=== PATIENT | male | born 1945 | race Caucasian/White ===

== ENCOUNTER 2017-01-10 05:58 | Inpatient (IN) | payer OTHER ==
[2017-01-10] VITALS (16 sets, daily range): BP systolic 88–152; BP diastolic 43–77
[~2017-01-10] VITALS: Ht 175.3 cm; Wt 69.9 kg
--- NOTE | 2017-01-10 07:41 | DIAGNOSTIC IMAGING REPORT ---
PROCEDURE: XR CHEST 1 VIEW INDICATION: FEVER TECHNIQUE: Single view chest. 06:17 hours COMPARISON: None. FINDINGS: The cardiomediastinal contour and central vasculature are normal. The lungs are clear without focal consolidation, pleural effusion or pneumothorax. The osseous structures are intact. Surgical clips at the base of the left neck. IMPRESSION: 1. No evidence of acute cardiopulmonary disease.
--- NOTE | 2017-01-10 08:38 | ED NURSING NOTES ---
Clinical Report - Nurses [facility] [address] [place] [address] 01/10/2017 6:00 Patient: CECE SNYDER TRIAGE Triage time 06:02. Acuity: LEVEL 3. Chief Complaint: ALTERED MENTAL STATUS. Alert. No acute distress. SEPSIS SCREEN: Sepsis Screen: temperature greater than 38.3 degrees C (101 degrees F) and heart rate greater than 90. LEONARD COMA SCORE: Kennedy Coma Scale: 15- eyes open spontaneously (4); best verbal response- oriented x 4 (5); best motor response- obeys commands (6). --06:07 Christiano Welch R.N. 06:01 01/10/17. BP: 148/66. HR: 109. RR: 23. O2 saturation: 96% on nasal cannula at 2 liters/minute. Temp: 101.6 F (oral). Pain level now: 0/10. --06:07 Christiano Welch R.N. Weight: 69.3 kg stated. Height/Length: 69 inches Per Patient. BMI: 22.6. --06:08 Christiano Welch R.N. Medications Unable to Obtain. --06:04 Christiano Welch R.N. Lisinopril Oral (Tablet 40 mg) 1 tablet, daily. --09:27 Flash Coon R.N. Simvastatin Oral 5 mg, daily. --09:27 Flash Coon R.N. Allergies Floroquinalone Antibiotics. --06:53 Christiano Welch R.N. The following entry was struck by Christiano Welch R.N., 06:52 (01/10/17) Reason - other. <<STRICKEN ENTRY-- No Known Drug Allergy. --06:04 Christiano Welch R.N. --END STRIKE>>. History Arrived by EMS, and unaccompanied. This started just prior to arrival. SOCIAL HX: Former smoker. No alcohol use or drug use. NUTRITIONAL RISK ASSESSMENT: The nutritional risk assessment revealed no deficiencies. LEARNING NEEDS ASSESSMENT: The learning needs assessment revealed no barriers. --06:07 Christiano Welch R.N. PROBLEMS: Throat Cancer. Hypertension. --06:06 Christiano Welch R.N. ADDITIONAL SURGERIES: "Intestinal surgery". --06:06 Christiano Welch R.N. Interventions ID band on patient. To treatment room. --06:07 Christiano Welch R.N. PHYSICAL ASSESSMENT To room via stretcher. GENERAL / NEURO / PSYCH: Alert. Oriented X 4. Appears in no acute distress. Speech within normal limits. Does not appear in pain or distress or anxious. RESPIRATORY: Respirations not labored. Cough (loose). CVS: Cardiac rhythm: supraventricular tachycardia. Capillary refill less than 2 seconds. GI / : Bowel sounds within normal limits. SKIN: Skin is warm and dry. --06:09 Christiano Welch R.N. NURSING PROGRESS NOTES Patient gowned. Reassurance given. Two patient identifiers checked. Call light placed in reach. Side rails up x 1. Bed placed in lowest position. Brakes of bed on. Patient ready for evaluation- chart flagged. ED physician notified. Patient waiting for evaluation and results. --06:09 Christiano Welch R.N. Head of bed elevated. --06:09 Christiano Welch R.N. monitoring and evaluation advisor, pulse oximeter and NIBP monitor placed on patient. --06:09 Christiano Welch R.N. 06:02 01/10/2017 Site #1 started via IV in the left wrist with an 18g angiocath, with aseptic technique and good blood return; one attempt. Blood drawn: rainbow set. Labeled in the presence of the patient and sent to the lab. Saline lock flushed with 10 mL saline (Started by LIDIA Renae, warehouse technician). --06:12 Christiano Welch R.N. 06:03 01/10/2017 Site #2 started prior to arrival by EMS via IV in the right antecubital space with an 20g angiocath. Saline lock flushed with 10 mL saline (in field start by EMS). --06:13 Christiano Welch R.N. 06:13 01/10/2017 Started bag #1 1000 mL IV Fluids IV NS (Saline); at 500 mL/hr over 2 hour(s) via site #1 via IV pump. Allergies verified and confirmed 5 rights. IV patency established. IV site checked: no pain, redness, or swelling. IV flushed thoroughly pre- and post-medication administration. --06:13 Christiano Welch R.N. ( xray present with patient, lab present drawing cultures). --06:14 Christiano Welch R.N. 06:24 01/10/2017 Started 2 gm of Rocephin (CefTRIAXone Sodium) IVPB in bag #1 50 mL; at 150 mL/hr over 20 minute(s) via site #1 via IV pump. Allergies verified and confirmed 5 rights. IV patency established. IV site checked: no pain, redness, or swelling. IV flushed thoroughly pre- and post-medication administration. --06:27 Christiano Welch R.N. ( urine sample requested from patient and urinal provided.). --06:31 Christiano Welch R.N. ( Tech janice performing EKG). --06:31 Christiano Weclh R.N. EKG time: (0634). EKG was ordered, performed by a tech and shown to the ED physician. --06:34 Jose Weir, ER Bobbin Presser 06:43 01/10/2017 Rocephin IVPB Discontinued: completed. Total amount infused: 50 mL. IV patency established. IV site checked: no pain, redness, or swelling. IV flushed thoroughly. --06:46 Christiano Welch R.N. 06:46 01/10/2017 Started 500 mg of Zithromax (Azithromycin) IVPB in bag #1 250 mL; at 250 mL/hr over 1 hour(s) via site #1 via IV pump. Allergies verified and confirmed 5 rights. IV patency established. IV site checked: no pain, redness, or swelling. IV flushed thoroughly pre- and post-medication administration. --06:46 Christiano Welch R.N. Critical value relayed to ED by lab 06:49. Critical value received by maria luisa MURILLO. Lactate level: 3.9. Critical value read back. Verified lab result. ED physician notifed of critical value (Chiki). Orders were not received. --07:00 Tana Griffith R.N. ( report given to Flash Mackay RN). --07:08 Christiano Welch R.N. ( H&P form given to patients who was at bedside to help fill out.). --08:34 Deanna Moreira 08:00 01/10/17. BP: 100/55. HR: 89. RR: 20. O2 saturation: 97% on nasal cannula at 2 liters/minute. --08:59 Flash Coon R.N. 08:15 01/10/17. BP: 88/51 (regular adult cuff) taken on the right arm, while lying. HR: 88. RR: 18. O2 saturation: 97% on nasal cannula at 2 liters/minute. --08:59 Flash Coon R.N. 08:30 01/10/17. BP: 85/49 (regular adult cuff) taken on the right arm, while lying. HR: 86. RR: 18. O2 saturation: 98%. --09:00 Flash oCon R.N. 09:00 01/10/17. BP: 100/60 (regular adult cuff) taken on the right arm, while lying. HR: 94. RR: 18. O2 saturation: 97% on nasal cannula at 2 liters/minute. Pain level now: 0/10. --09:09 Flash Coon R.N. 09:15 01/10/17. BP: 109/60. HR: 86. RR: 16. O2 saturation: 100% on nasal cannula at 2 liters/minute. Temp: 98.4 F (oral). Pain level now: 0/10. --09:25 Flash Coon R.N. 09:30 01/10/17. BP: 91/50. HR: 83. RR: 16. O2 saturation: 99% on nasal cannula at 2 liters/minute. Pain level now: 0/10. --09:51 Flash Coon R.N. 10:00 01/10/17. BP: 106/61 (regular adult cuff) taken on the right arm, while lying. HR: 84. RR: 16. O2 saturation: 99% on nasal cannula at 2 liters/minute. Pain level now: 0/10. --10:13 Flash Coon R.N. 07:50 01/10/2017 Zithromax IVPB Discontinued: bag #1 completed. Total amount infused: 250 mL. IV patency established. IV site checked: no pain, redness, or swelling. IV flushed thoroughly. --10:44 Flash Coon R.N. 08:25 01/10/2017 Started 1.73 gm of Vancomycin IVPB in bag #1 535 mL; at 267 mL/hr over 2 hour(s) via site #1 via IV pump. Allergies verified and confirmed 5 rights. IV patency established. IV site checked: no pain, redness, or swelling. IV flushed thoroughly pre- and post-medication administration. --08:32 Flash Coon R.N. 08:30 01/10/2017 IV Fluids IV NS Bag Change: bag #2 completed. Total amount infused: 2000. STARTED bag #3 (1000 mL) at 500 mL/hr via IV pump. Confirmed 5 rights. IV patency established. IV site checked: no pain, redness, or swelling. IV flushed thoroughly. --08:33 Flash Coon R.N. 10:30 01/10/2017 Vancomycin IVPB Discontinued: bag #1 completed. Total amount infused: 535 mL. IV patency established. IV site checked: no pain, redness, or swelling. IV flushed thoroughly. --10:43 Flash Coon R.N. 10:30 01/10/17. BP: 109/60. HR: 90. RR: 17. O2 saturation: 97% on nasal cannula at 2 liters/minute. Pain level now: 010. --10:52 Flash Coon R.N. 10:45 01/10/17. BP: 114/60. HR: 82. RR: 18. O2 saturation: 96% on nasal cannula at 2 liters/minute. Pain level now: 010. --10:53 Flash Coon R.N. 11:00 01/10/17. BP: 106/63 (regular adult cuff) taken on the right arm, while lying. HR: 84. RR: 17. O2 saturation: 98% on room air. Pain level now: 010. --11:13 Flash Coon R.N. Cardiac rhythm: normal sinus rhythm. monitoring and evaluation advisor, pulse oximeter and NIBP monitor placed on patient; monitoring and evaluation advisor- Lead II and V1; monitor alarms on. Call light placed in reach. Side rails up x 2. Bed placed in lowest position. Brakes of bed on. Patient waiting for admit bed. --11:13 Flash Coon R.N. 10:35 01/10/2017 IV Fluids IV NS Discontinued: bag #3 completed. Total amount infused: 1000 mL. IV patency established. IV site checked: no pain, redness, or swelling. IV flushed thoroughly. --12:04 Flash Coon R.N. DISPOSITION / DISCHARGE Report was given to a nurse via a phone call. Report included patient's care, treatment, medications, reviewed medication reconcilliation, and condition (including any recent changes or anticipated changes). All questions were answered. Report was acknowledged. --12:09 Flash Coon R.N. 12:15 01/10/2017 Site #[address] upon admission; patent, no pain and no signs of infection or infiltration. Good blood return present. Flushed with 10 mL saline; flushes easily. --12:46 Flash Coon R.N. 12:15 01/10/2017 Site #[address] upon admission; patent, no pain and no signs of infection or infiltration. Good blood return present. Flushed with 10 mL saline; flushes easily. --12:46 Flash Coon R.N. Cardiac rhythm: normal sinus rhythm. Departure time: 1215. Condition at departure: improved. Admitted to the Critical Care Unit (306). --12:46 Flash Coon R.N. 11:45 01/10/17. BP: 133/65. HR: 77. RR: 17. O2 saturation: 98% on room air. Temp: 98.4 F (oral). Pain level now: 0/10. --12:46 Flash Coon R.N. Locked/Released at 01/10/2017 12:47 by Flash Coon R.N.
--- NOTE | 2017-01-10 08:38 | ED ORDER SUMMARY ---
..... Patient: CECE SNYDER OrderSheet [facility] VisitID: [id number] [address] [place] [address] 71y, M Registration Date/Time: 01/10/2017 ORDER SHEET Weight: 69.3 kg (stated) Allergies: Floroquinalone Antibiotics GENERAL ORDERS: Chest 1V Urgent (06:01/10/2017 Veronica HIGGINBOTHAM) (6:15 iCetana ER Technical Trainer) Blood Culture (No) (N/A) Urgent (06:01/10/2017 Veronica HIGGINBOTHAM) (6:10 DDavis R.N.) Dictaphone Typist (Continuous) (06:01/10/2017 Veronica HIGGINBOTHAM) (6:10 DDavis R.N.) Cardiac Panel Stat (06:01/10/2017 Veronica HIGGINBOTHAM) (6:10 DDavis R.N.) UA-Culture if indicated Urgent (06:01/10/2017 Veronica HIGGINBOTHAM) (Ack 6:24 iCetana ER Technical Trainer) (8:30 JSimbeck R.N.) Oxygen (2 L/min) (NC) (06:07 01/10/2017 Veronica HIGGINBOTHAM) (6:10 DDavis R.N.) Pulse oximeter (06:01/10/2017 Veronica HIGGINBOTHAM) (6:10 DDavis R.N.) EKG - ER Stat (06:01/10/2017 Veronica HIGGINBOTHAM) (Ack 6:24 ugichemmike ER Technical Trainer) (6:31 DDavis R.N.) PCT (Procalcitonin) Urgent (06:01/10/2017 Veronica HIGGINBOTHAM) (6:10 DDavis R.N.) Lactate, Serum Urgent (06:01/10/2017 Veronica HIGGINBOTHAM) (6:10 DDavis R.N.) CRP Urgent (06:01/10/2017 Veronica HIGGINBOTHAM) (6:10 DDavis R.N.) MEDICATION ORDERS: IV FLUIDS: IV NS : initial bolus none -, then 500 mL/hr for 4h (NOW); Routine (06:01/10/2017 Veronica HIGGINBOTHAM) (6:13 Leatha R.N.) Rocephin IV 2 gm/50mL (NOW) (06:10 01/10/2017 Veronica HIGGINBOTHAM) (6:27 DDgaviota R.N.) Zithromax IV 500 mg/250 mL (NOW) (06:10 01/10/2017 Veronica HIGGINBOTHAM) (Ack 6:27 DDavis R.N.) (6:46 DDavis R.N.) Vancomycin IV 25 mg/kg (NOW) (06:52 01/10/2017 Veronica HIGGINBOTHAM) (8:32 Shanel R.N.) ORDER SHEET NOTES: [Electronically signed by Flash Coon R.N. (12:47 01/10/2017)] [Electronically signed by James Monet MD (22:06 01/11/2017)] [Electronically locked/signed by Flash Coon R.N. (12:47 01/10/2017)]
--- NOTE | 2017-01-10 08:38 | ED CLINICAL REPORT ---
Clinical Report - Physicians/Mid Levels [facility] [address] [place] [address] 01/10/2017 6:00 Patient: CECE SNYDER Time Seen: 06:02 Jan 10 2017. Arrived- By ambulance. Historian- patient and EMS personnel. CPT: Critical care 30-74 min plus (#[id number]). EKG interpretation (#[id number]). HISTORY OF PRESENT ILLNESS Chief Complaint: Code Sepsis. ( fever and confusion tonight. No pain, cough, dysuria , vomiting, diarrhea.). This started today and is still present. At its maximum, severity described as moderate. When seen in the E.D., severity described as moderate. The patient has had fatigue and weakness. Similar symptoms previously: None. Recent medical care: Not recently seen/assessed. REVIEW OF SYSTEMS The patient has had fever and chills. No sore throat or throat, sinus drainage, cough or difficulty breathing. No chest pain, abdominal pain, nausea, vomiting or diarrhea. No black stools, bloody stools, difficulty with urination, skin rash or headache. No blackouts, diabetic symptoms or easy bruising. The patient has had difficulty with ambulation. took MOM last night. All systems otherwise negative, except as recorded above. PAST HISTORY Constipation Bowel surgery. Throat Cancer. Hypertension. - ADDITIONAL SURGERIES: "Intestinal surgery". Medications: Simvastatin Oral 5 mg, daily. Lisinopril Oral (Tablet 40 mg) 1 tablet, daily. Unable to Obtain. Allergies: Floroquinalone Antibiotics. SOCIAL HISTORY Former smoker. No alcohol use or drug use. ADDITIONAL NOTES The nursing notes have been reviewed. PHYSICAL EXAM Vital Signs: 01/10/2017 06:02 BP: 148/66. HR: 109. RR: 23. O2 saturation: 96%. Temp: 101.6 F. Pain level now: 0/10. Appearance: Alert. Patient in mild distress. Eyes: Eyes normal inspection. ENT: Dry mucous membranes present. Pharynx normal. Neck: Normal inspection. CVS: Tachycardia. Heart sounds normal. Pulses normal. Respiratory: No respiratory distress. Breath sounds normal. Chest nontender. Abdomen: Soft and nontender. Bowel sounds normal. Back: Normal inspection. Skin: Skin warm. Normal skin color. No rash. Extremities: Extremities exhibit normal ROM. No lower extremity edema. Neuro: Oriented X 3. No motor deficit. No sensory deficit. Reflexes normal. LABS, X-RAYS, AND EKG EKG: Normal EKG. Chest X-ray: (Patchy infiltrates.). Views: AP (portable). Technique: good. The X-rays were independently viewed by me and interpreted contemporaneously by me. Laboratory Tests: CBC w Diff: (TRACY: 01/11/2017 05:35) ( MsgRcvd 01/11/2017 05:43) Final results Test Result Flag Units (Reference) WHITE BLOOD COUNT 14.3 H K/uL (4.5-11.5) RED BLOOD COUNT 4.11 L M/uL (4.50-5.90) HEMOGLOBIN 13.0 L gm/dL (13.5-17.5) HEMATOCRIT 38.1 L % (41.0-53.0) MEAN CELL VOLUME 93 fL (80-100) MEAN CORPUSCULAR HGB 32 pg (26-34) MEAN CORPUSCULAR HGB CONC 34 g/dL (31-37) RED CELL DISTRIBUTION WIDTH 13.0 % (11.6-14.8) PLATELET COUNT 168 K/uL (150-400) NEUTROPHIL % 85.7 H % (50-75) LYMPH % 7.2 L % (25-40) MONO % 6.6 % (3-14) EOSINOPHIL % 0.4 % (0-4) BASOPHIL % 0.1 % (0-2) BMP: (TRACY: 01/11/2017 04:00) ( MsgRcvd 01/11/2017 04:35) Final results Test Result Flag Units (Reference) GLUCOSE 123 H mg/dL (70-110) BUN 8 mg/dL (7-18) CREATININE 0.7 mg/dL (0.6-1.3) Estimated GFR >60 mL/min Estimated GFR- >60 mL/min Note: Persistent reduction over 3 months in eGFR<60 mL/min/1.73 m2 defines CKD. Patients with eGFR values>=60 mL/min/1.73 m2 may also have CKD if evidence ofpersistent proteinuria. Additional information may be foundat www.kidney.org. SODIUM 137 mmol/L (136-145) POTASSIUM 3.7 mmol/L (3.5-5.1) CHLORIDE 106 mmol/L (98-107) CARBON DIOXIDE 23 mmol/L (21-32) CALCIUM 7.8 L mg/dL (8.5-10.1) UA-Culture if indicated: (TRACY: 01/10/2017 08:20) ( [facility] 01/10/2017 09:31) Final results Test Result Flag Units (Reference) URINE COLOR YELLOW URINE APPEARANCE CLEAR URINE GLUCOSE NEGATIVE (NEGATIVE) URINE BILIRUBIN NEGATIVE (NEGATIVE) URINE KETONE NEGATIVE (NEGATIVE) URINE SPECIFIC GRAVITY <= 1.005 L (1.010-1.030) URINE PH 6.5 (5.0-8.0) URINE PROTEIN NEGATIVE (NEGATIVE) URINE UROBILINOGEN 0.2 EU/dL (0.2-1.0) URINE NITRITE NEGATIVE (NEGATIVE) URINE BLOOD NEGATIVE (NEGATIVE) URINE LEUK ESTERASE NEGATIVE (NEGATIVE) URINE RBC NONE SEEN rbc/hpf (0-1) URINE WBC NONE SEEN wbc/hpf (0-1) URINE EPITHELIAL CELLS RARE EPI/hpf (0-5) URINE BACTERIA NONE SEEN (NONE SEEN) URINE COMMENT CULT NOT INDICATED URINE CULTURES ARE SET-UP BASED ON THE FOLLOWING CRITERIA:POSITIVE NITRITEPOSITIVE LEUKOCYTE ESTERASEGREATER THAN 10 WHITE BLOOD CELLSMODERATE (2+) OR GREATER BACTERIA CBC w Diff: (TRACY: 01/10/2017 06:00) ( [facility] 01/10/2017 06:27) Final results Test Result Flag Units (Reference) WHITE BLOOD COUNT 12.3 H K/uL (4.5-11.5) RED BLOOD COUNT 4.62 M/uL (4.50-5.90) HEMOGLOBIN 14.3 gm/dL (13.5-17.5) HEMATOCRIT 42.7 % (41.0-53.0) MEAN CELL VOLUME 92 fL (80-100) MEAN CORPUSCULAR HGB 31 pg (26-34) MEAN CORPUSCULAR HGB CONC 34 g/dL (31-37) RED CELL DISTRIBUTION WIDTH 12.6 % (11.6-14.8) PLATELET COUNT 209 K/uL (150-400) NEUTROPHIL % 92.9 H % (50-75) LYMPH % 2.7 L % (25-40) MONO % 4.4 % (3-14) EOSINOPHIL % 0 % (0-4) BASOPHIL % 0 % (0-2) [id number]: (TRACY: 01/10/2017 11:25) ( [facility] 01/11/2017 00:18) Final results Test Result Flag Units (Reference) LACTIC ACID (SEPSIS) FOLLOWUP 0.9 mmol/L (0.4-2.0) [id number]: (TRACY: 01/10/2017 06:00) ( [facility] 01/10/2017 06:44) Final results Test Result Flag Units (Reference) C-REACTIVE PROTEIN < 0.2 mg/dL (0.0-0.9) Lactate, Serum: (TRACY: 01/10/2017 06:00) ( [facility] 01/10/2017 06:52) Final results Test Result Flag Units (Reference) LACTIC ACID 3.9 H mmol/L (0.4-2.0) CRITICAL RESULTS CALLEDCalled to EDDIE ANTON RN 01/10/17 0651Were 2 patient identifiers used? YWas the result read back? Y [id number]: (TRACY: 01/10/2017 06:00) ( [facility] 01/10/2017 07:54) Final results Test Result Flag Units (Reference) PROCALCITONIN <0.5 ng/mL (0-0.5) PCT Concentration: Interpretation : Risk/option for action PCT <=0.5 ng/mL : Systemic : Low risk forinfection(sepsis): progression to severeis not likely. : systemic infection.Local bacterial : CAUTION-PCT levelsinfection is : below 0.5 ng/mL do notpossible. : exclude an infection,because localizedinfections (withoutsystemic signs) may beassociated with suchlow levels. If PCT ismeasured very earlyafter a bacterialchallenge (usually <6hours), these valuesmay still be low. Inthis case PCT shouldbe re-assessed 6-24hours later. PCT >0.5 and : Systemic infection: Moderate risk for<= 2 ng/mL : (sepsis) is : progression to severepossible, but : systemic infection.other conditions : The patient should beare known to : closely monitoredelevate PCT. : both clinically andby re-assessing PCTwithin 6-24 hours. PCT > 2 ng/mL : Systemic infection: High risk for(sepsis) is likely: progression to severeunless other : systemic infection.causes are known. : PCT >= 10 ng/mL : Important systemic: High likelihood ofinflammatory : severe sepsis orresponse, almost : septic shock.exclusively due to:severe bacterial :sepsis or septic :shock. : CHEM 13 PANEL: (TRACY: 01/10/2017 06:00) ( MsgRcvd 01/10/2017 07:10) Final results Test Result Flag Units (Reference) GLUCOSE 183 H mg/dL (70-110) BUN 15 mg/dL (7-18) CREATININE 1.2 mg/dL (0.6-1.3) Estimated GFR >60 mL/min Estimated GFR- >60 mL/min Note: Persistent reduction over 3 months in eGFR<60 mL/min/1.73 m2 defines CKD. Patients with eGFR values>=60 mL/min/1.73 m2 may also have CKD if evidence ofpersistent proteinuria. Additional information may be foundat www.kidney.org. SODIUM 135 L mmol/L (136-145) POTASSIUM 3.5 mmol/L (3.5-5.1) CHLORIDE 96 L mmol/L (98-107) CARBON DIOXIDE 24 mmol/L (21-32) CALCIUM 8.8 mg/dL (8.5-10.1) TOTAL PROTEIN 6.9 g/dL (6.4-8.2) ALBUMIN 3.6 g/dL (3.3-5.0) BILIRUBIN, TOTAL 1.0 mg/dL (0.0-1.0) ALKALINE PHOSPHATASE 61 U/L (46-116) AST (SGOT) 25 U/L (15-37) ALT (SGPT) 26 U/L (12-78) CPK 37 U/L (24-260) TROPONIN I <0.05 ng/mL (0.00-1.5) TROPONIN REFERENCE RANGE:<0.1 NEGATIVE0.1-1.5 INDETERMINANT>1.5 POSITIVE MAGNESIUM 1.7 L mg/dL (1.8-2.4) Blood Culture: (TRACY: 01/10/2017 06:15) ( [facility] 01/11/2017 06:21) IP Is patient on antibiotics? N If so, list antibiotic: N/A Test Result Flag Units (Reference) CULTURE, BLOOD NO GROWTH AFTER 24 HOURS Blood Culture: (TRACY: 01/10/2017 06:10) ( [facility] 01/11/2017 06:21) IP Is patient on antibiotics? N If so, list antibiotic: N/A Test Result Flag Units (Reference) CULTURE, BLOOD NO GROWTH AFTER 24 HOURS . PROGRESS AND PROCEDURES Course of Care: IV NS BC times 2 Vancomycin 25mg/kg Rocephin 2g IV Zithromax 500 mg IV Pt had a drop in blood pressure in marta 80's. Was bolused with more fluids and recovered to [address] Potter here to assume care. Critical care performed (105 minutes). Time is exclusive of separately billable procedures. Time includes: direct patient care, patient reassessment, coordination of patient care, interpretation of data (laboratory data, pulse oximetry and chest xrays), review of patient's medical records, medical consultation and documentation of patient care- see progress notes. Procedures included in critical care time: phlebotomy. Procedures excluded from critical care time: electrocardiography. Discussed case with on-call health care provider, (Abbey). Reviewed test results. Agreed upon treatment plan and decision to admit. Health care provider will see patient in ED. Patient/family counseled. Old medical records ordered. Disposition orders written. Disposition: Admitted to the Critical Care Unit. CLINICAL IMPRESSION Sepsis Fever Pneumonia. (Electronically signed by James Monet MD 01/11/2017 22:06)
--- NOTE | 2017-01-10 08:38 | ED NURSING NOTES ---
Clinical Report - Nurses [facility] [address] [place] [address] 01/10/2017 6:00 Patient: CECE SNYDER TRIAGE Triage time 06:02. Acuity: LEVEL 3. Chief Complaint: ALTERED MENTAL STATUS. Alert. No acute distress. SEPSIS SCREEN: Sepsis Screen: temperature greater than 38.3 degrees C (101 degrees F) and heart rate greater than 90. LEONARD COMA SCORE: [place] Coma Scale: 15- eyes open spontaneously (4); best verbal response- oriented x 4 (5); best motor response- obeys commands (6). --06:07 Christiano Welch R.N. 06:01 01/10/17. BP: 148/66. HR: 109. RR: 23. O2 saturation: 96% on nasal cannula at 2 liters/minute. Temp: 101.6 F (oral). Pain level now: 0/10. --06:07 Christiano Welch R.N. Weight: 69.3 kg stated. Height/Length: 69 inches Per Patient. BMI: 22.6. --06:08 Christiano Welch R.N. Medications Unable to Obtain. --06:04 Christiano Welch R.N. Lisinopril Oral (Tablet 40 mg) 1 tablet, daily. --09:27 Flash Coon R.N. Simvastatin Oral 5 mg, daily. --09:27 Flash Coon R.N. Allergies Floroquinalone Antibiotics. --06:53 Christiano Welch R.N. The following entry was struck by Christiano Welch R.N., 06:52 (01/10/17) Reason - other. <<STRICKEN ENTRY-- No Known Drug Allergy. --06:04 Christiano Welch R.N. --END STRIKE>>. History Arrived by EMS, and unaccompanied. This started just prior to arrival. SOCIAL HX: Former smoker. No alcohol use or drug use. NUTRITIONAL RISK ASSESSMENT: The nutritional risk assessment revealed no deficiencies. LEARNING NEEDS ASSESSMENT: The learning needs assessment revealed no barriers. --06:07 Christiano Welch R.N. PROBLEMS: Throat Cancer. Hypertension. --06:06 Christiano Welch R.N. ADDITIONAL SURGERIES: "Intestinal surgery". --06:06 Christiano Welch R.N. Interventions ID band on patient. To treatment room. --06:07 Christiano Welch R.N. PHYSICAL ASSESSMENT To room via stretcher. GENERAL / NEURO / PSYCH: Alert. Oriented X 4. Appears in no acute distress. Speech within normal limits. Does not appear in pain or distress or anxious. RESPIRATORY: Respirations not labored. Cough (loose). CVS: Cardiac rhythm: supraventricular tachycardia. Capillary refill less than 2 seconds. GI / : Bowel sounds within normal limits. SKIN: Skin is warm and dry. --06:09 Christiano Welch R.N. NURSING PROGRESS NOTES Patient gowned. Reassurance given. Two patient identifiers checked. Call light placed in reach. Side rails up x 1. Bed placed in lowest position. Brakes of bed on. Patient ready for evaluation- chart flagged. ED physician notified. Patient waiting for evaluation and results. --06:09 Christiano Welch R.N. Head of bed elevated. --06:09 Christiano Welch R.N. monitor and storage bin tender, pulse oximeter and NIBP monitor placed on patient. --06:09 Christiano Welch R.N. 06:02 01/10/2017 Site #1 started via IV in the left wrist with an 18g angiocath, with aseptic technique and good blood return; one attempt. Blood drawn: rainbow set. Labeled in the presence of the patient and sent to the lab. Saline lock flushed with 10 mL saline (Started by LIDIA Renae, manager of housekeeping). --06:12 Christiano Welch R.N. 06:03 01/10/2017 Site #2 started prior to arrival by EMS via IV in the right antecubital space with an 20g angiocath. Saline lock flushed with 10 mL saline (in field start by EMS). --06:13 Christiano Welch R.N. 06:13 01/10/2017 Started bag #1 1000 mL IV Fluids IV NS (Saline); at 500 mL/hr over 2 hour(s) via site #1 via IV pump. Allergies verified and confirmed 5 rights. IV patency established. IV site checked: no pain, redness, or swelling. IV flushed thoroughly pre- and post-medication administration. --06:13 Christiano Welch R.N. ( xray present with patient, lab present drawing cultures). --06:14 Christiano Welch R.N. 06:24 01/10/2017 Started 2 gm of Rocephin (CefTRIAXone Sodium) IVPB in bag #1 50 mL; at 150 mL/hr over 20 minute(s) via site #1 via IV pump. Allergies verified and confirmed 5 rights. IV patency established. IV site checked: no pain, redness, or swelling. IV flushed thoroughly pre- and post-medication administration. --06:27 Christiano Welch R.N. ( urine sample requested from patient and urinal provided.). --06:31 Christiano Welch R.N. ( Tech janice performing EKG). --06:31 Christiano Welch R.N. EKG time: (0634). EKG was ordered, performed by a tech and shown to the ED physician. --06:34 Jose Weir, ER Manager Disaster Recovery 06:43 01/10/2017 Rocephin IVPB Discontinued: completed. Total amount infused: 50 mL. IV patency established. IV site checked: no pain, redness, or swelling. IV flushed thoroughly. --06:46 Christiano Welch R.N. 06:46 01/10/2017 Started 500 mg of Zithromax (Azithromycin) IVPB in bag #1 250 mL; at 250 mL/hr over 1 hour(s) via site #1 via IV pump. Allergies verified and confirmed 5 rights. IV patency established. IV site checked: no pain, redness, or swelling. IV flushed thoroughly pre- and post-medication administration. --06:46 Christiano Welch R.N. Critical value relayed to ED by lab 06:49. Critical value received by maria luisa MURILLO. Lactate level: 3.9. Critical value read back. Verified lab result. ED physician notifed of critical value (Chiki). Orders were not received. --07:00 Tana Griffith R.N. ( report given to Flash Mackay RN). --07:08 Christiano Welch R.N. ( H&P form given to patients who was at bedside to help fill out.). --08:34 Deanna Moreira 08:00 01/10/17. BP: 100/55. HR: 89. RR: 20. O2 saturation: 97% on nasal cannula at 2 liters/minute. --08:59 Flash Coon R.N. 08:15 01/10/17. BP: 88/51 (regular adult cuff) taken on the right arm, while lying. HR: 88. RR: 18. O2 saturation: 97% on nasal cannula at 2 liters/minute. --08:59 Flash Coon R.N. 08:30 01/10/17. BP: 85/49 (regular adult cuff) taken on the right arm, while lying. HR: 86. RR: 18. O2 saturation: 98%. --09:00 Flash Coon R.N. 09:00 01/10/17. BP: 100/60 (regular adult cuff) taken on the right arm, while lying. HR: 94. RR: 18. O2 saturation: 97% on nasal cannula at 2 liters/minute. Pain level now: 0/10. --09:09 Flash Coon R.N. 09:15 01/10/17. BP: 109/60. HR: 86. RR: 16. O2 saturation: 100% on nasal cannula at 2 liters/minute. Temp: 98.4 F (oral). Pain level now: 0/10. --09:25 Flash Coon R.N. 09:30 01/10/17. BP: 91/50. HR: 83. RR: 16. O2 saturation: 99% on nasal cannula at 2 liters/minute. Pain level now: 0/10. --09:51 Flash Cono R.N. 10:00 01/10/17. BP: 106/61 (regular adult cuff) taken on the right arm, while lying. HR: 84. RR: 16. O2 saturation: 99% on nasal cannula at 2 liters/minute. Pain level now: 0/10. --10:13 Flash Coon R.N. 07:50 01/10/2017 Zithromax IVPB Discontinued: bag #1 completed. Total amount infused: 250 mL. IV patency established. IV site checked: no pain, redness, or swelling. IV flushed thoroughly. --10:44 Flash Coon R.N. 08:25 01/10/2017 Started 1.73 gm of Vancomycin IVPB in bag #1 535 mL; at 267 mL/hr over 2 hour(s) via site #1 via IV pump. Allergies verified and confirmed 5 rights. IV patency established. IV site checked: no pain, redness, or swelling. IV flushed thoroughly pre- and post-medication administration. --08:32 Flash Coon R.N. 08:30 01/10/2017 IV Fluids IV NS Bag Change: bag #2 completed. Total amount infused: 2000. STARTED bag #3 (1000 mL) at 500 mL/hr via IV pump. Confirmed 5 rights. IV patency established. IV site checked: no pain, redness, or swelling. IV flushed thoroughly. --08:33 Flash Coon R.N. 10:30 01/10/2017 Vancomycin IVPB Discontinued: bag #1 completed. Total amount infused: 535 mL. IV patency established. IV site checked: no pain, redness, or swelling. IV flushed thoroughly. --10:43 Flash Coon R.N. 10:30 01/10/17. BP: 109/60. HR: 90. RR: 17. O2 saturation: 97% on nasal cannula at 2 liters/minute. Pain level now: 010. --10:52 Flash Coon R.N. 10:45 01/10/17. BP: 114/60. HR: 82. RR: 18. O2 saturation: 96% on nasal cannula at 2 liters/minute. Pain level now: 010. --10:53 Flash Coon R.N. 11:00 01/10/17. BP: 106/63 (regular adult cuff) taken on the right arm, while lying. HR: 84. RR: 17. O2 saturation: 98% on room air. Pain level now: 010. --11:13 Flash Coon R.N. Cardiac rhythm: normal sinus rhythm. monitor and storage bin tender, pulse oximeter and NIBP monitor placed on patient; monitor and storage bin tender- Lead II and V1; monitor alarms on. Call light placed in reach. Side rails up x 2. Bed placed in lowest position. Brakes of bed on. Patient waiting for admit bed. --11:13 Flash Coon R.N. 10:35 01/10/2017 IV Fluids IV NS Discontinued: bag #3 completed. Total amount infused: 1000 mL. IV patency established. IV site checked: no pain, redness, or swelling. IV flushed thoroughly. --12:04 Flash Coon R.N. DISPOSITION / DISCHARGE Report was given to a nurse via a phone call. Report included patient's care, treatment, medications, reviewed medication reconcilliation, and condition (including any recent changes or anticipated changes). All questions were answered. Report was acknowledged. --12:09 Flash Coon R.N. 12:15 01/10/2017 Site #[address] upon admission; patent, no pain and no signs of infection or infiltration. Good blood return present. Flushed with 10 mL saline; flushes easily. --12:46 Flash Coon R.N. 12:15 01/10/2017 Site #[address] upon admission; patent, no pain and no signs of infection or infiltration. Good blood return present. Flushed with 10 mL saline; flushes easily. --12:46 Flash Coon R.N. Cardiac rhythm: normal sinus rhythm. Departure time: 1215. Condition at departure: improved. Admitted to the Critical Care Unit (306). --12:46 Flash Coon R.N. 11:45 01/10/17. BP: 133/65. HR: 77. RR: 17. O2 saturation: 98% on room air. Temp: 98.4 F (oral). Pain level now: 0/10. --12:46 Flash Coon R.N. Locked/Released at 01/10/2017 12:47 by Flash Coon R.N.
--- NOTE | 2017-01-10 08:38 | ED CLINICAL REPORT ---
Clinical Report - Physicians/Mid Levels [facility] [address] [place] [address] 01/10/2017 6:00 Patient: CECE SNYDER Time Seen: 06:02 Jan 10 2017. Arrived- By ambulance. Historian- patient and EMS personnel. CPT: Critical care 30-74 min plus (#[id number]). EKG interpretation (#[id number]). HISTORY OF PRESENT ILLNESS Chief Complaint: Code Sepsis. ( fever and confusion tonight. No pain, cough, dysuria , vomiting, diarrhea.). This started today and is still present. At its maximum, severity described as moderate. When seen in the E.D., severity described as moderate. The patient has had fatigue and weakness. Similar symptoms previously: None. Recent medical care: Not recently seen/assessed. REVIEW OF SYSTEMS The patient has had fever and chills. No sore throat or throat, sinus drainage, cough or difficulty breathing. No chest pain, abdominal pain, nausea, vomiting or diarrhea. No black stools, bloody stools, difficulty with urination, skin rash or headache. No blackouts, diabetic symptoms or easy bruising. The patient has had difficulty with ambulation. took MOM last night. All systems otherwise negative, except as recorded above. PAST HISTORY Constipation Bowel surgery. Throat Cancer. Hypertension. - ADDITIONAL SURGERIES: "Intestinal surgery". Medications: Simvastatin Oral 5 mg, daily. Lisinopril Oral (Tablet 40 mg) 1 tablet, daily. Unable to Obtain. Allergies: Floroquinalone Antibiotics. SOCIAL HISTORY Former smoker. No alcohol use or drug use. ADDITIONAL NOTES The nursing notes have been reviewed. PHYSICAL EXAM Vital Signs: 01/10/2017 06:02 BP: 148/66. HR: 109. RR: 23. O2 saturation: 96%. Temp: 101.6 F. Pain level now: 0/10. Appearance: Alert. Patient in mild distress. Eyes: Eyes normal inspection. ENT: Dry mucous membranes present. Pharynx normal. Neck: Normal inspection. CVS: Tachycardia. Heart sounds normal. Pulses normal. Respiratory: No respiratory distress. Breath sounds normal. Chest nontender. Abdomen: Soft and nontender. Bowel sounds normal. Back: Normal inspection. Skin: Skin warm. Normal skin color. No rash. Extremities: Extremities exhibit normal ROM. No lower extremity edema. Neuro: Oriented X 3. No motor deficit. No sensory deficit. Reflexes normal. LABS, X-RAYS, AND EKG EKG: Normal EKG. Chest X-ray: (Patchy infiltrates.). Views: AP (portable). Technique: good. The X-rays were independently viewed by me and interpreted contemporaneously by me. Laboratory Tests: CBC w Diff: (TRACY: 01/11/2017 05:35) ( MsgRcvd 01/11/2017 05:43) Final results Test Result Flag Units (Reference) WHITE BLOOD COUNT 14.3 H K/uL (4.5-11.5) RED BLOOD COUNT 4.11 L M/uL (4.50-5.90) HEMOGLOBIN 13.0 L gm/dL (13.5-17.5) HEMATOCRIT 38.1 L % (41.0-53.0) MEAN CELL VOLUME 93 fL (80-100) MEAN CORPUSCULAR HGB 32 pg (26-34) MEAN CORPUSCULAR HGB CONC 34 g/dL (31-37) RED CELL DISTRIBUTION WIDTH 13.0 % (11.6-14.8) PLATELET COUNT 168 K/uL (150-400) NEUTROPHIL % 85.7 H % (50-75) LYMPH % 7.2 L % (25-40) MONO % 6.6 % (3-14) EOSINOPHIL % 0.4 % (0-4) BASOPHIL % 0.1 % (0-2) BMP: (TRACY: 01/11/2017 04:00) ( MsgRcvd 01/11/2017 04:35) Final results Test Result Flag Units (Reference) GLUCOSE 123 H mg/dL (70-110) BUN 8 mg/dL (7-18) CREATININE 0.7 mg/dL (0.6-1.3) Estimated GFR >60 mL/min Estimated GFR- >60 mL/min Note: Persistent reduction over 3 months in eGFR<60 mL/min/1.73 m2 defines CKD. Patients with eGFR values>=60 mL/min/1.73 m2 may also have CKD if evidence ofpersistent proteinuria. Additional information may be foundat www.kidney.org. SODIUM 137 mmol/L (136-145) POTASSIUM 3.7 mmol/L (3.5-5.1) CHLORIDE 106 mmol/L (98-107) CARBON DIOXIDE 23 mmol/L (21-32) CALCIUM 7.8 L mg/dL (8.5-10.1) UA-Culture if indicated: (TRACY: 01/10/2017 08:20) ( [facility] 01/10/2017 09:31) Final results Test Result Flag Units (Reference) URINE COLOR YELLOW URINE APPEARANCE CLEAR URINE GLUCOSE NEGATIVE (NEGATIVE) URINE BILIRUBIN NEGATIVE (NEGATIVE) URINE KETONE NEGATIVE (NEGATIVE) URINE SPECIFIC GRAVITY <= 1.005 L (1.010-1.030) URINE PH 6.5 (5.0-8.0) URINE PROTEIN NEGATIVE (NEGATIVE) URINE UROBILINOGEN 0.2 EU/dL (0.2-1.0) URINE NITRITE NEGATIVE (NEGATIVE) URINE BLOOD NEGATIVE (NEGATIVE) URINE LEUK ESTERASE NEGATIVE (NEGATIVE) URINE RBC NONE SEEN rbc/hpf (0-1) URINE WBC NONE SEEN wbc/hpf (0-1) URINE EPITHELIAL CELLS RARE EPI/hpf (0-5) URINE BACTERIA NONE SEEN (NONE SEEN) URINE COMMENT CULT NOT INDICATED URINE CULTURES ARE SET-UP BASED ON THE FOLLOWING CRITERIA:POSITIVE NITRITEPOSITIVE LEUKOCYTE ESTERASEGREATER THAN 10 WHITE BLOOD CELLSMODERATE (2+) OR GREATER BACTERIA CBC w Diff: (TRACY: 01/10/2017 06:00) ( [facility] 01/10/2017 06:27) Final results Test Result Flag Units (Reference) WHITE BLOOD COUNT 12.3 H K/uL (4.5-11.5) RED BLOOD COUNT 4.62 M/uL (4.50-5.90) HEMOGLOBIN 14.3 gm/dL (13.5-17.5) HEMATOCRIT 42.7 % (41.0-53.0) MEAN CELL VOLUME 92 fL (80-100) MEAN CORPUSCULAR HGB 31 pg (26-34) MEAN CORPUSCULAR HGB CONC 34 g/dL (31-37) RED CELL DISTRIBUTION WIDTH 12.6 % (11.6-14.8) PLATELET COUNT 209 K/uL (150-400) NEUTROPHIL % 92.9 H % (50-75) LYMPH % 2.7 L % (25-40) MONO % 4.4 % (3-14) EOSINOPHIL % 0 % (0-4) BASOPHIL % 0 % (0-2) [id number]: (TRACY: 01/10/2017 11:25) ( [facility] 01/11/2017 00:18) Final results Test Result Flag Units (Reference) LACTIC ACID (SEPSIS) FOLLOWUP 0.9 mmol/L (0.4-2.0) [id number]: (TRACY: 01/10/2017 06:00) ( [facility] 01/10/2017 06:44) Final results Test Result Flag Units (Reference) C-REACTIVE PROTEIN < 0.2 mg/dL (0.0-0.9) Lactate, Serum: (TRACY: 01/10/2017 06:00) ( [facility] 01/10/2017 06:52) Final results Test Result Flag Units (Reference) LACTIC ACID 3.9 H mmol/L (0.4-2.0) CRITICAL RESULTS CALLEDCalled to EDDIE ANTON RN 01/10/17 0651Were 2 patient identifiers used? YWas the result read back? Y [id number]: (TRACY: 01/10/2017 06:00) ( [facility] 01/10/2017 07:54) Final results Test Result Flag Units (Reference) PROCALCITONIN <0.5 ng/mL (0-0.5) PCT Concentration: Interpretation : Risk/option for action PCT <=0.5 ng/mL : Systemic : Low risk forinfection(sepsis): progression to severeis not likely. : systemic infection.Local bacterial : CAUTION-PCT levelsinfection is : below 0.5 ng/mL do notpossible. : exclude an infection,because localizedinfections (withoutsystemic signs) may beassociated with suchlow levels. If PCT ismeasured very earlyafter a bacterialchallenge (usually <6hours), these valuesmay still be low. Inthis case PCT shouldbe re-assessed 6-24hours later. PCT >0.5 and : Systemic infection: Moderate risk for<= 2 ng/mL : (sepsis) is : progression to severepossible, but : systemic infection.other conditions : The patient should beare known to : closely monitoredelevate PCT. : both clinically andby re-assessing PCTwithin 6-24 hours. PCT > 2 ng/mL : Systemic infection: High risk for(sepsis) is likely: progression to severeunless other : systemic infection.causes are known. : PCT >= 10 ng/mL : Important systemic: High likelihood ofinflammatory : severe sepsis orresponse, almost : septic shock.exclusively due to:severe bacterial :sepsis or septic :shock. : CHEM 13 PANEL: (TRACY: 01/10/2017 06:00) ( MsgRcvd 01/10/2017 07:10) Final results Test Result Flag Units (Reference) GLUCOSE 183 H mg/dL (70-110) BUN 15 mg/dL (7-18) CREATININE 1.2 mg/dL (0.6-1.3) Estimated GFR >60 mL/min Estimated GFR- >60 mL/min Note: Persistent reduction over 3 months in eGFR<60 mL/min/1.73 m2 defines CKD. Patients with eGFR values>=60 mL/min/1.73 m2 may also have CKD if evidence ofpersistent proteinuria. Additional information may be foundat www.kidney.org. SODIUM 135 L mmol/L (136-145) POTASSIUM 3.5 mmol/L (3.5-5.1) CHLORIDE 96 L mmol/L (98-107) CARBON DIOXIDE 24 mmol/L (21-32) CALCIUM 8.8 mg/dL (8.5-10.1) TOTAL PROTEIN 6.9 g/dL (6.4-8.2) ALBUMIN 3.6 g/dL (3.3-5.0) BILIRUBIN, TOTAL 1.0 mg/dL (0.0-1.0) ALKALINE PHOSPHATASE 61 U/L (46-116) AST (SGOT) 25 U/L (15-37) ALT (SGPT) 26 U/L (12-78) CPK 37 U/L (24-260) TROPONIN I <0.05 ng/mL (0.00-1.5) TROPONIN REFERENCE RANGE:<0.1 NEGATIVE0.1-1.5 INDETERMINANT>1.5 POSITIVE MAGNESIUM 1.7 L mg/dL (1.8-2.4) Blood Culture: (TRACY: 01/10/2017 06:15) ( [facility] 01/11/2017 06:21) IP Is patient on antibiotics? N If so, list antibiotic: N/A Test Result Flag Units (Reference) CULTURE, BLOOD NO GROWTH AFTER 24 HOURS Blood Culture: (TRACY: 01/10/2017 06:10) ( [facility] 01/11/2017 06:21) IP Is patient on antibiotics? N If so, list antibiotic: N/A Test Result Flag Units (Reference) CULTURE, BLOOD NO GROWTH AFTER 24 HOURS . PROGRESS AND PROCEDURES Course of Care: IV NS BC times 2 Vancomycin 25mg/kg Rocephin 2g IV Zithromax 500 mg IV Pt had a drop in blood pressure in marta 80's. Was bolused with more fluids and recovered to [address] Potter here to assume care. Critical care performed (105 minutes). Time is exclusive of separately billable procedures. Time includes: direct patient care, patient reassessment, coordination of patient care, interpretation of data (laboratory data, pulse oximetry and chest xrays), review of patient's medical records, medical consultation and documentation of patient care- see progress notes. Procedures included in critical care time: phlebotomy. Procedures excluded from critical care time: electrocardiography. Discussed case with on-call health care provider, (Ab[place]). Reviewed test results. Agreed upon treatment plan and decision to admit. Health care provider will see patient in ED. Patient/family counseled. Old medical records ordered. Disposition orders written. Disposition: Admitted to the Critical Care Unit. CLINICAL IMPRESSION Sepsis Fever Pneumonia. (Electronically signed by James Monet MD 01/11/2017 22:06)
--- NOTE | 2017-01-10 08:38 | ED ORDER SUMMARY ---
..... Patient: CECE SNYDER OrderSheet [facility] VisitID: [id number] [address] [place] [address] 71y, M Registration Date/Time: 01/10/2017 ORDER SHEET Weight: 69.3 kg (stated) Allergies: Floroquinalone Antibiotics GENERAL ORDERS: Chest 1V Urgent (06:01/10/2017 Veronica HIGGINBOTHAM) (6:15 [employer]ation Controls Specialist) Blood Culture (No) (N/A) Urgent (06:01/10/2017 Veronica HIGGINBOTHAM) (6:10 DDavis R.N.) Beauty Culturist (Continuous) (06:01/10/2017 Veronica HIGGINBOTHAM) (6:10 DDavis R.N.) Cardiac Panel Stat (06:01/10/2017 Veronica HIGGINBOTHAM) (6:10 DDavis R.N.) UA-Culture if indicated Urgent (06:01/10/2017 Veronica HIGGINBOTHAM) (Ack 6:24 [employer] ER Automation Controls Specialist) (8:30 JSimbeck R.N.) Oxygen (2 L/min) (NC) (06:07 01/10/2017 Veronica HIGGINBOTHAM) (6:10 DDavis R.N.) Pulse oximeter (06:01/10/2017 Veronica HIGGINBOTHAM) (6:10 DDavis R.N.) EKG - ER Stat (06:01/10/2017 Veronica HIGGINBOTHAM) (Ack 6:24 [employer] ER Automation Controls Specialist) (6:31 DDavis R.N.) PCT (Procalcitonin) Urgent (06:01/10/2017 Veronica HIGGINBOTHAM) (6:10 DDavis R.N.) Lactate, Serum Urgent (06:01/10/2017 Veronica HIGGINBOTHAM) (6:10 DDavis R.N.) CRP Urgent (06:01/10/2017 Veronica HIGGINBOTHAM) (6:10 DDavis R.N.) MEDICATION ORDERS: IV FLUIDS: IV NS : initial bolus none -, then 500 mL/hr for 4h (NOW); Routine (06:01/10/2017 Veronica HIGGINBOTHAM) (6:13 Leatha R.N.) Rocephin IV 2 gm/50mL (NOW) (06:10 01/10/2017 Veronica HIGGINBOTHAM) (6:27 DDgaviota R.N.) Zithromax IV 500 mg/250 mL (NOW) (06:10 01/10/2017 Veronica HIGGINBOTHAM) (Ack 6:27 DDavis R.N.) (6:46 DDavis R.N.) Vancomycin IV 25 mg/kg (NOW) (06:52 01/10/2017 Veronica HIGGINBOTHAM) (8:32 Shanel R.N.) ORDER SHEET NOTES: [Electronically signed by Flash Coon R.N. (12:47 01/10/2017)] [Electronically signed by James Monet MD (22:06 01/11/2017)] [Electronically locked/signed by Flash Coon R.N. (12:47 01/10/2017)]
--- NOTE | 2017-01-10 09:43 | HISTORY AND PHYSICAL ---
ADMITTED: 01/10/2017 CHIEF COMPLAINT: Chills and confusion. HISTORY OF PRESENT ILLNESS: This is a 71-year-old white male who developed confusion slightly since yesterday with mild abdominal cramps and patient was shaky and had severe chills, vomited once, but no shortness of breath, no cough. No chest pain. The patient felt dizzy, had no sweats, no frequency or dysuria. The patient also become quite weak and was not able to walk and keep his balance , so he was transferred per his 's request to the emergency department. MEDICAL/SURGICAL HISTORY: Past medical history: Remarkable for hypertension, gastroesophageal reflux disease, arthralgia and oral cancer. Surgical history: Oral surgery and hernia repair. Hospitalization: None. MEDICATIONS: 1. List is not available at this time. ALLERGIES: 1. FLUOROQUINOLONE. SOCIAL HISTORY: The patient is , has no kids. No history of smoking, alcohol or drug abuse. FAMILY HISTORY: Noncontributory. REVIEW OF SYSTEMS: No recent weight changes. No difficulty with vision or hearing. Had some coughing last night. No runny nose or congestion. No sore throat. No shortness of breath, no chest pain. He vomited once. No nausea, mild abdominal cramping, normal regular bowel movements. No dysuria, frequency, complains of generalized arthralgia, no headaches, mild dizziness. No tingling, no numbness. No localized weakness. No syncope. PHYSICAL EXAMINATION: VITAL SIGNS: On admission, reported the patient was hypotensive, required IV fluid, but now was recorded blood pressure 148/66, heart rate is 109, respirations 23, oxygen saturation is 96% on 2 L, temperature is 101.6. GENERAL APPEARANCE: Well-developed, well-nourished, no acute distress at this moment. HEAD AND NECK: Ears: Normal tympanic membranes. Mouth: Normal hypopharynx, no exudation, no erythema. Nose: Normal mucosa. Neck: Supple. No JVD. No carotid bruit. No palpable mass. SKIN: Warm and dry with good turgor. HEART: Regular S1, S2. No murmur. No S3 was heard. LUNGS: Clear to auscultation. No rhonchi or crackles or wheezing. ABDOMEN: Soft, nontender. Bowel sounds are positive. EXTREMITIES: No edema. Good peripheral pulses. No signs of DVT or cyanosis. MUSCULOSKELETAL: Grossly within normal limits. NEUROLOGIC: Alert and oriented x3. Cranial nerves are grossly intact. No motor deficits. Pupils are round and reactive to light. Extraocular movements are intact. No nystagmus. No cerebellar signs. Deep tendon reflexes are bilateral and symmetric. LAB/IMAGING: White blood count is 12.3, hemoglobin is 14.3, hematocrit 42.7, and platelet count is 209. CRP is less than 0.2. Glucose 183, BUN is 15, creatinine is 1.2, sodium is 135, potassium 3.5, chloride is 96, CO2 is 24, calcium 8.4. Liver enzymes unremarkable. Troponin I is less than 0.05. Lactic acid is 3.9. Procalcitonin is less than 0.5. Chest x-ray is unremarkable. EKG is normal sinus rhythm. IMPRESSION: 1. Sepsis. 2. Hypertension. 3. Gastroesophageal reflux disease. PLAN: Since the patient is hypotensive and has a high fever with tachycardia, will be admitted to intensive care unit for time being with IV hydration and will start the patient on vancomycin and Zosyn and will try to obtain his home medication list and try to start him as soon as we can. Blood culture is already sent to the lab and UA was unremarkable, reportedly, but I do not have a report of that here with me, but I will check on that.
--- NOTE | 2017-01-10 12:20 | NUR ---
Received patient to floor from ED via gurney. Patient able to move himself from gurney to bed. Patient made comfortable and vital signs taken. Will continue to monitor patient.
--- NOTE | 2017-01-10 12:41 | NUR ---
O: Pt admits with sepsis, starting Vanco per pharmacy Ht: 69 in. Wt: 69.3 kg Scr: 1.2 Pt also received ceftriaxone and azithromycin in ED. Now on Zosyn. A: Appropriate abx coverage, awaiting BC's P: Initiate Vanco 1 GM Q12H. Follow up with trough on 01/12
--- NOTE | 2017-01-10 14:50 | NUR ---
NUTRITION NOTE: S: Pt admitted with dx/o sepsis. PMH includes: HTN, throat cancer including tongue. Pt state that he drinks strawberry and chocolate flavored nutrition shakes at home, can have some oatmeal if it is thinned out. O: Diet Rx: General Regular Thin Liquids NKFA Wts: 69.3 kg Ht: 69" BMI: 22.6; wnl Est Kcals: ~8647-2796 kcals per day ESt Pro: ~70-85 g per day Est Fluids: ~2100 mls per day Meds Incl: IV vanco, see eMar for complete list Skin: waffle overlay in place for preventative meausres Labs Incl: (01/10) glucose 183, BUN 15, Creat 1.2, Na+ 135, K+ 3.5, mag 1.7, Ca+ 8.8, total pro 6.9, albumin 3.6, HCT 42.7, HGB 14.3, MCV 92, MCH 31 A: Spoke with MD regarding pt preferences for drinkable nutrition supplements. Rec consider Resource 2.0 QID which provides ~480 kcals per serving, would = 1920 kcals if consumed QID, May mix with ice cream for increased palatablilty and kcals. Rec change pt to high alex high pro full liquid diet. Per MD, no swallow eval warranted at this time, pt able to voice what he can tolerate. RD to follow up and monitor nutrition indices prn/protocol. P: 1. High calorie High protein full liquid diet with mighty shakes q meal 2. Resource 2.0 QID between meals, add ice cream to help increase palatablility and extra cals.
--- NOTE | 2017-01-10 15:53 | Progress Note ---
Subjective General ADVANCED CARE PLAN History of Present Illness his is a 71-year-old white male who developed confusion slightly since yesterday with mild abdominal cramps and patient was shaky and had severe chills, vomited once, but no shortness of breath, no cough. No chest pain. The patient felt dizzy, had no sweats, no frequency or dysuria. The patient also become quite weak and was not able to walk and keep his balance, so he was transferred per his 's request to the emergency department. A discussion was undertaken with the patient regarding previous advance care arrangements/decisions. The following advanced directives were noted by the patient and discussed with me at the time of admission. ADVANCED DIRECTIVES: 1. Living well: No 2. POLST: No 3. CODE STATUS: Yes 4. Durable Power Pharmacy Buyer Health care: No 5. Donor card: No The patient has expressed interest in pursuing full resuscitative efforts at the time of cardiopulmonary arrest. The patient has been placed on a FULL CODE STATUS. The patient's wishes were documented in the chart and orders regarding the patient's wishes entered into the [employer] CPOE system. The "Advance Care Plan Document" was not distributed to patient to discuss with his family. Less than 30 minutes was spent in performing the above tasks and documentation of the patient's advanced care plan.
--- NOTE | 2017-01-10 15:53 | Progress Note ---
Subjective General ADVANCED CARE PLAN History of Present Illness his is a 71-year-old white male who developed confusion slightly since yesterday with mild abdominal cramps and patient was shaky and had severe chills, vomited once, but no shortness of breath, no cough. No chest pain. The patient felt dizzy, had no sweats, no frequency or dysuria. The patient also become quite weak and was not able to walk and keep his balance, so he was transferred per his 's request to the emergency department. A discussion was undertaken with the patient regarding previous advance care arrangements/decisions. The following advanced directives were noted by the patient and discussed with me at the time of admission. ADVANCED DIRECTIVES: 1. Living well: No 2. POLST: No 3. CODE STATUS: Yes 4. Durable Power Human Resources Services Specialist Health care: No 5. Donor card: No The patient has expressed interest in pursuing full resuscitative efforts at the time of cardiopulmonary arrest. The patient has been placed on a FULL CODE STATUS. The patient's wishes were documented in the chart and orders regarding the patient's wishes entered into the [employer] CPOE system. The "Advance Care Plan Document" was not distributed to patient to discuss with his family. Less than 30 minutes was spent in performing the above tasks and documentation of the patient's advanced care plan.
--- NOTE | 2017-01-10 19:25 | NUR ---
Patient alert and oriented throughout shift. Afebrile, VSS. No complaints of nausea or vomiting. Patient and reported that patient's lips were a little swollen. Patient not feeling, itchy, short of breath, or tingling anywhere. Patient will call if he starts to feel any of these things. Will continue to monitor patient.
[2017-01-11] VITALS (13 sets, daily range): BP systolic 111–160; BP diastolic 61–86
--- NOTE | 2017-01-11 04:29 | NUR ---
PATIENT SLEPT WELL THROUGH THE NIGHT, OCCASIONALLY HAD MOMENTS OF CONFUSION BUT REORIENTED EASILY, ACCIDENTALLY PULLED IV IN RAC OUT, CATHETER INTACT, APPLIED IV TO SALINE LOCK IN LFA, WILL CONTINUE TO MONITOR
[2017-01-11] MEDS ORDERED: PRINIVIL5 MG PO (05:29)
[2017-01-11] MEDS ORDERED: SIMVASTATIN5 MG PO (05:30)
--- NOTE | 2017-01-11 08:40 | Progress Note ---
Subjective General This is a 71-year-old white male who developed confusion slightly since yesterday with mild abdominal cramps and patient was shaky and had severe chills , vomited once, but no shortness of breath, no cough. No chest pain. The patient felt dizzy, had no sweats, no frequency or dysuria. The patient also become quite weak and was not able to walk and keep his balance, so he was transferred per his 's request to the emergency department. Patient is doing much better, no fever or chills, feels stronger, no cough, sputum or dyspnea, no nause or vomiting no disuria or frequency Review of systems: Constitutional: Negative for fever or chills Respiratory: Negative for cough sputum or dyspnea GI: Negative for nausea vomiting Urinary: Negative for dysuria or frequency Physical Exam Vital Signs / I&Os Vital Signs Date Time Temp Pulse Resp B/P Pulse O2 O2 Flow FiO2 Ox Delivery Rate 01/11 0824 69 20 121/70 98 Room Air 01/11 0712 98.2 74 21 149/62 95 Room Air 01/11 0619 70 20 160/82 94 Room Air 01/11 0518 66 17 121/64 93 01/11 0420 82 17 133/70 97 01/11 0315 62 15 118/67 94 Room Air 01/11 0228 98.4 64 17 123/65 94 Room Air 01/11 0121 65 17 111/61 93 Room Air 01/11 0018 64 18 116/66 94 Room Air 01/10 2352 98.4 01/10 2317 73 16 126/70 98 Room Air 01/10 2222 73 18 120/64 92 Room Air 01/10 2114 73 18 132/65 96 Room Air 0.0 01/10 2100 Room Air 01/10 2013 69 14 113/58 98 Room Air 0.0 01/10 1900 70 19 120/60 98 Room Air 0.0 01/10 1800 98.4 75 15 107/58 99 Room Air 0.0 01/10 1700 78 14 141/66 99 Room Air 0.0 01/10 1600 80 15 111/64 97 Room Air 0.0 01/10 1510 84 17 152/77 98 Nasal 2.0 Cannula 01/10 1500 111 27 90/43 100 Room Air 0.0 01/10 1401 98.4 82 19 116/76 98 Nasal 2.0 Cannula 01/10 1400 98.2 76 15 122/59 99 Nasal 2.0 Cannula 01/10 1300 76 18 113/57 100 Nasal 2.0 Cannula 01/10 1245 2.0 01/10 1237 98.1 78 17 134/69 100 Nasal 2.0 Cannula I&O 01/11 0000 01/10 1600 01/10 0800 Intake Total 984 Output Total 300 300 Balance 684 -300 General Appearance No acute distress Lungs Clear to auscultation Neck Supple Cardiovascular Regular rate and rhythm, Normal S1 and S2, No murmurs, gallops, rubs Abdomen Normal bowel sounds, Soft, No tenderness Extremities No edema Skin No Rashes Psych/Mental Status Mental status normal LAB Results Laboratory Tests 01/11 01/11 01/10 0535 0400 1125 Chemistry Plasma Sodium (136 - 145 mmol/L) 137 Plasma Potassium (3.5 - 5.1 mmol/L) 3.7 Plasma Chloride (98 - 107 mmol/L) 106 CO2 (Enzymatic) (21 - 32 mmol/L) 23 BUN (7 - 18 mg/dL) 8 Creatinine (0.6 - 1.3 mg/dL) 0.7 Est GFR ( Amer) (mL/min) >60 Est GFR (Non-Af Amer) (mL/min) >60 Glucose (70 - 110 mg/dL) 123 Lactic Acid (0.4 - 2.0 mmol/L) 0.9 Plasma Calcium (8.5 - 10.1 mg/dL) 7.8 Hematology WBC (4.5 - 11.5 K/uL) 14.3 RBC (4.50 - 5.90 M/uL) 4.11 Hgb (13.5 - 17.5 gm/dL) 13.0 Hct (41.0 - 53.0 %) 38.1 MCV (80 - 100 fL) 93 MCH (26 - 34 pg) 32 RDW (11.6 - 14.8 %) 13.0 Neut % (Auto) (50 - 75 %) 85.7 Lymph % (Auto) (25 - 40 %) 7.2 [place] % (Auto) (3 - 14 %) 6.6 Eos % (Auto) (0 - 4 %) 0.4 Baso % (Auto) (0 - 2 %) 0.1 Plt Count, EDTA (150 - 400 K/uL) 168 PUBS MCHC (31 - 37 g/dL) 34 Microbiology Date/Time Procedure - Status Source Growth 01/10 1731 MRSA Screen - RECD NASAL Assessment and Plan Problem List 1. Sepsis Plan dramatical improvment one more day IV abx and change to AC status 2. HTN (hypertension) Plan controlled takes lisinopril at home but will hold one more day 3. GERD (gastroesophageal reflux disease) Plan stable off PPI
--- NOTE | 2017-01-11 16:02 | NUR ---
STATED BED UNCOMFORTABLE. UP IN CHAIR MOSTLY THIS AFTRNOON. STATED HE IS READY TO GO HOME. EXPLAINED DR WANTS HIM TO HAVE 1 MORE DAY OF ANTIBIOTICS AND AGREED HAS AGREED TO THAT.
--- NOTE | 2017-01-11 22:07 | ED MAR SUMMARY ---
..... Medication Administration Record [facility] [address] [place] [address] Patient: CECE SNYDER Visit ID: [id number] 71y, M Weight: 69.3 kg Height/Length: 69 in BMI: 22.6 ALLERGIES: Floroquinalone Antibiotics Start 06:13 01/10/2017 Christiano Welch R.N., Stop 10:35 01/10/2017 Flash Coon R.N. Medication Administered: IV NS (SALINE), Dose: IV Fluids over 2 hour(s), Rate: 500 mL/hr, Dispensed: 1000 mL bag, Site: #1 left wrist. Medication Ordered: IV NS : initial bolus none -, then 500 mL/hr for 4h (NOW); Routine. Start 06:24 01/10/2017 Christiano Welch R.N., Stop 06:43 01/10/2017 Christiano Welch R.N. Medication Administered: ROCEPHIN [IVPB] (CEFTRIAXONE SODIUM), Dose: 2 gm IVPB over 20 minute(s), Rate: 150 mL/hr, Dispensed: 50 mL bag, Site: #1 left wrist. Medication Ordered: Rocephin IV 2 gm/50mL (NOW). Start 06:46 01/10/2017 Christiano Welch R.N., Stop 07:50 01/10/2017 Flash Coon R.N. Medication Administered: ZITHROMAX [IVPB] (AZITHROMYCIN), Dose: 500 mg IVPB over 1 hour(s), Rate: 250 mL/hr, Dispensed: 250 mL bag, Site: #1 left wrist. Medication Ordered: Zithromax IV 500 mg/250 mL (NOW). Start 08:25 01/10/2017 Flash Coon R.N., Stop 10:30 01/10/2017 Flash Coon R.N. Medication Administered: VANCOMYCIN [IVPB], Dose: 1.73 gm IVPB over 2 hour(s), Rate: 267 mL/hr, Dispensed: 535 mL bag, Site: #1 left wrist. Medication Ordered: Vancomycin IV 25 mg/kg (NOW).
--- NOTE | 2017-01-11 22:07 | ED MAR SUMMARY ---
..... Medication Administration Record [facility] [address] [place] [address] Patient: CECE SNYDER Visit ID: [id number] 71y, M Weight: 69.3 kg Height/Length: 69 in BMI: 22.6 ALLERGIES: Floroquinalone Antibiotics Start 06:13 01/10/2017 Christiano Welch R.N., Stop 10:35 01/10/2017 Flash Coon R.N. Medication Administered: IV NS (SALINE), Dose: IV Fluids over 2 hour(s), Rate: 500 mL/hr, Dispensed: 1000 mL bag, Site: #1 left wrist. Medication Ordered: IV NS : initial bolus none -, then 500 mL/hr for 4h (NOW); Routine. Start 06:24 01/10/2017 Christiano Welch R.N., Stop 06:43 01/10/2017 Christiano Welch R.N. Medication Administered: ROCEPHIN [IVPB] (CEFTRIAXONE SODIUM), Dose: 2 gm IVPB over 20 minute(s), Rate: 150 mL/hr, Dispensed: 50 mL bag, Site: #1 left wrist. Medication Ordered: Rocephin IV 2 gm/50mL (NOW). Start 06:46 01/10/2017 Christiano Welch R.N., Stop 07:50 01/10/2017 Flash Coon R.N. Medication Administered: ZITHROMAX [IVPB] (AZITHROMYCIN), Dose: 500 mg IVPB over 1 hour(s), Rate: 250 mL/hr, Dispensed: 250 mL bag, Site: #1 left wrist. Medication Ordered: Zithromax IV 500 mg/250 mL (NOW). Start 08:25 01/10/2017 Flash Coon R.N., Stop 10:30 01/10/2017 Flash Coon R.N. Medication Administered: VANCOMYCIN [IVPB], Dose: 1.73 gm IVPB over 2 hour(s), Rate: 267 mL/hr, Dispensed: 535 mL bag, Site: #1 left wrist. Medication Ordered: Vancomycin IV 25 mg/kg (NOW).
--- NOTE | 2017-01-11 22:07 | ED MED RECONCILIATION SUMMARY ---
Patient: CECE SNYDER Medication Reconciliation Report [facility] VisitID: [id number] [address] [place] [address] 71y, M Registration Date/Time: 01/10/2017 Weight: 69.3 kg Height/Length: 69 in. BMI: 22.6 ALLERGIES: Floroquinalone Antibiotics The patient's Home Medications are listed below: THE FOLLOWING MEDICATIONS NEED TO BE RECONCILED: Lisinopril Oral (40 mg) 1 tablet, daily Simvastatin Oral 5 mg, daily The source(s) of the original Home Medication information: Not obtained. The following Medications were given to the patient in the Emergency Department: IV NS IV Fluids bolus 0, then 500 mL/hr, administered: 01/10/2017 6:13:00 AM Rocephin [IVPB] IVPB bolus 0, then 2 gm 150 mL/hr, administered: 01/10/2017 6:24:00 AM Zithromax [IVPB] IVPB bolus 0, then 500 mg 250 mL/hr, administered: 01/10/2017 6:46:00 AM Vancomycin [IVPB] IVPB bolus 0, then 1.73 gm 267 mL/hr, administered: 01/10/2017 8:25:00 AM The following Medications were prescribed to the patient: None.
--- NOTE | 2017-01-11 22:07 | ED DISCHARGE INSTRUCTIONS ---
Patient: CECE SNYDER General Instructions [facility] VisitID: [id number] [address] [place] [address] 71y, M Registration Date/Time: 01/10/2017 Sepsis Fever Pneumonia. (Electronically signed by James Monet MD 01/11/2017 22:06)
--- NOTE | 2017-01-11 22:07 | ED DISCHARGE INSTRUCTIONS ---
Patient: CECE SNYDER General Instructions [facility] VisitID: [id number] [address] [place] [address] 71y, M Registration Date/Time: 01/10/2017 Sepsis Fever Pneumonia. (Electronically signed by James Monet MD 01/11/2017 22:06)
--- NOTE | 2017-01-11 22:07 | ED MED RECONCILIATION SUMMARY ---
Patient: CECE SNYDER Medication Reconciliation Report [facility] VisitID: [id number] [address] [place] [address] 71y, M Registration Date/Time: 01/10/2017 Weight: 69.3 kg Height/Length: 69 in. BMI: 22.6 ALLERGIES: Floroquinalone Antibiotics The patient's Home Medications are listed below: THE FOLLOWING MEDICATIONS NEED TO BE RECONCILED: Lisinopril Oral (40 mg) 1 tablet, daily Simvastatin Oral 5 mg, daily The source(s) of the original Home Medication information: Not obtained. The following Medications were given to the patient in the Emergency Department: IV NS IV Fluids bolus 0, then 500 mL/hr, administered: 01/10/2017 6:13:00 AM Rocephin [IVPB] IVPB bolus 0, then 2 gm 150 mL/hr, administered: 01/10/2017 6:24:00 AM Zithromax [IVPB] IVPB bolus 0, then 500 mg 250 mL/hr, administered: 01/10/2017 6:46:00 AM Vancomycin [IVPB] IVPB bolus 0, then 1.73 gm 267 mL/hr, administered: 01/10/2017 8:25:00 AM The following Medications were prescribed to the patient: None.
[2017-01-12 02:24] VITALS: BP 148/86
--- NOTE | 2017-01-12 05:42 | NUR ---
PATIENT SLEPT WELL THROUGH THE NIGHT, LOOKING FORWARD TO GOING HOME, STATES THE BED IS VERY UNCOMFORTABLE, WAS ABLE TO SWALLOW TYLENOL TO RELIEVE BACK PAIN, WILL CONTINUE TO MONITPR
[2017-01-12 07:02] VITALS: BP 158/78
[2017-01-12] MEDS ORDERED: CEFTIN500 MG PO (07:03)
--- NOTE | 2017-01-12 22:01 | DISCHARGE SUMMARY ---
ADMIT DATE: 01/10/2017 DISCHARGE DATE: 01/12/2017 DISCHARGE DIAGNOSES: 1. Sepsis, etiology is not known 2. Hypertension 3. Gastroesophageal reflux disease BRIEF HISTORY: This is a 71-year-old white male who was admitted on 01/10/2017. He presented to the emergency department with confusion that started the day before the admission with mild abdominal cramps. The patient had chills and shakes. He vomited once. No shortness of breath, no cough, no chest pain. The patient felt dizzy, though. No sweats. No frequency or dysuria. The patient progressively became weak to the point that he had to come to emergency department. The patient became hypotensive in the emergency department and had severe fever of 101, so the patient was admitted to the ICU. HOSPITAL COURSE: The patient was admitted to the ICU and was started on vancomycin and Zosyn and also with IV hydration. The patient did very, very well. Blood culture was sent. So far, no growth on the blood cultures. Chest x-ray and UA were unremarkable. The patient continued to get better and better. We switched the patient from the ICU to the acute care yesterday. Today, the patient is doing much better. No fever, no chills, no chest pain, no cough, no shortness of breath, no nausea, no vomiting. The only complaint is he has back pain because of the bed; but he says when he gets off the bed, back pain improves. Today, vital signs are temperature 97.8, pulse is 74, respirations 16, blood pressure 148/86, and oxygen saturation 94% on room air. Lungs clear to auscultation. Heart regular S1 and S2. No murmurs heard. Abdomen is soft, nontender. Bowel sounds are positive. Extremities have no edema. White blood count is 13.5, down from 14.3; hemoglobin 13.9; hematocrit 41.3; and platelet count is 190. Sodium is 134, potassium is 3, chloride is 99, CO2 is 24, BUN is 5 , creatinine is 0.9, glucose is 135, and calcium is 8.5. DISCHARGE INSTRUCTIONS/MEDICATIONS: So the patient will be discharged home to follow up with his primary care physician within 1 week. Discharge medications will be Ceftin 500 mg twice a day for 7 days, potassium 20 mEq daily, lisinopril 40 mg daily, which he takes at home. The patient also will get a potassium 20 mEq rider before discharge.
== END 2017-01-12 10:30 | disposition home or self-care (01) | DRG 872 ==
LOC: ED SRH 05:58 → TRANS SRH 08:44 → CC SRH 09:24
PROVIDERS: ADMIT Neuromusculoskeletal Medicine, Sports Medicine
DX: A41.9 Sepsis, unspecified organism (principal); R10.9 Unspecified abdominal pain; R11.10 Vomiting, unspecified; R41.0 Disorientation, unspecified; I10 Essential (primary) hypertension; K21.9 Gastro-esophageal reflux disease without esophagitis